=== PATIENT | female | born 1950 | race Caucasian/White ===

== ENCOUNTER 2025-05-23 06:17 | Day surgery (SDC) | payer MEDICARE ==
[2025-05-23 06:45] LABS: Hematocrit 36.3 % (34.1-44.9); Hemoglobin 11.5 g/dL (11.2-15.7); Mean Corpuscular Hemoglobin 29.2 pg (25.6-32.2); Mean Corpuscular Hgb Concent. 31.7 g/dL (32.2-35.5); Platelet Count 221 x10^3/uL (182-369); Red Blood Count 3.94 x10^6/uL (3.93-5.22); White Blood Count 6.0 x10^3/uL (3.98-10.04)
[2025-05-23 07:02] LABS: Calcium 9.0 mg/dL (8.4-10.2); Carbon Dioxide 27.0 mmol/L (22-30); Creatinine 1 0.69 mg/dL (0.52-1.04); EST GLOMERULAR FILTRATION RATE 91.0 ML/MIN; Glucose 95.0 mg/dL (74-106); Potassium 3.7 mmol/L (3.5-5.1); SGOT/AST 24.0 U/L (14-36); SGPT/ALT 13.0 U/L (0-35); Total Protein 6.9 g/dL (6.3-8.2)
[2025-05-23] MEDS ORDERED: TRANEXAMIC 1,000 MG/100ML-NACL 1,000 MG/100 ML PIGGYBACK IV ONE (07:24)
[2025-05-23] MEDS ORDERED: CEFAZOLIN SODIUM ONE (07:25)
[2025-05-23] MEDS ORDERED: Lactated Ringers 1,000 ML IV ONE (07:26)
[2025-05-23] MEDS: TRANEXAMIC 1,000 MG/100ML-NACL 1,000 MG/100 ML PIGGYBACK IV ONE (07:35)
[2025-05-23] MEDS: Lactated Ringers 1,000 ML IV SCH (07:38)
[2025-05-23] MEDS ORDERED: Zofran 4 MG/2 ML VIAL ONE (07:46)
[2025-05-23] MEDS ORDERED: propofoL IV ONE (07:46)
[2025-05-23] MEDS ORDERED: Xylocaine-Mpf 2% 5 Ml Vial ONE (07:46)
[2025-05-23] MEDS ORDERED: SUBLIMAZE 100 MCG/2 ML ONE (07:46)
[2025-05-23] MEDS ORDERED: Versed 2 MG/2 ML Injection ONE (07:46)
[2025-05-23] MEDS ORDERED: Marcaine Mpf 0.5% Vial 30 Ml ONE (07:47)
[2025-05-23] MEDS ORDERED: EXPAREL 133 MG/10 ML VIAL IJ ONE (07:47)
--- NOTE | 2025-05-23 08:35 | XRAY ---
Indication: Preop exam. Comparison: None Portable chest demonstrates cardiomegaly and mild right hemidiaphragm elevation. No focal infiltrate, consolidation, or large effusion. Bony thorax intact with osteopenia and minimal degenerative changes. Impression: Cardiomegaly. No acute cardiopulmonary abnormalities.
--- NOTE | 2025-05-23 10:54 | XRAY ---
Indication: Postop exam. Comparison: May 22, 2025 2 view left knee again demonstrates osteopenia with new intact total knee arthroplasty and postoperative soft tissue swelling/emphysema and effusion. No other bony, articular, or soft tissue abnormalities.
[2025-05-23] MEDS ORDERED: ULTRAM 50 MG PO PRN (11:23)
[2025-05-23] MEDS: NORCO 7.5/325 MG TAB PO PRN (11:53)
[2025-05-23] MEDS: DIOVAN 80 MG PO SCH ×2 (14:33→23:20)
[2025-05-23] MEDS: Toprol Xl 50 MG PO SCH ×2 (14:34→23:20)
[2025-05-23] MEDS: Hydromorphone 1 mg/ml Injection IV PRN (16:22)
[2025-05-23] MEDS: NORCO 10-325 MG PO PRN (17:31)
[2025-05-23] MEDS: XARELTO 10 MG TABLET PO SCH (21:51)
[2025-05-24 04:11] VITALS: TEMP 97.9
[2025-05-24 05:03] LABS: Hematocrit 33.4 % (34.1-44.9); Hemoglobin 10.5 g/dL (11.2-15.7); Mean Corpuscular Hemoglobin 29.2 pg (25.6-32.2); Mean Corpuscular Hgb Concent. 31.4 g/dL (32.2-35.5); Platelet Count 217 x10^3/uL (182-369); Red Blood Count 3.59 x10^6/uL (3.93-5.22); White Blood Count 9.4 x10^3/uL (3.98-10.04)
[2025-05-24 09:37] VITALS: BP 104/57; PULSE 90; RESP 16; O2SAT 97
--- NOTE | 2025-05-24 10:01 | OP ---
SURGERY DATE/TIME: 05/23/2025 [id number] PREOPERATIVE DIAGNOSIS: Severe advanced osteoarthritis, left knee. POSTOPERATIVE DIAGNOSIS: Severe advanced osteoarthritis, left knee. PROCEDURE: Left total knee replacement arthroplasty. SURGEON: Ag Robbins II, DO ANESTHESIA: Spinal with block for postoperative pain control. DESCRIPTION OF PROCEDURE AND FINDINGS: The patient was identified and informed consent was obtained. The patient was taken to the operative suite where the spinal anesthetic was administered. Following this, the block was administered once an appropriate level of anesthesia had been obtained. A tourniquet was placed high on the left thigh. The left lower extremity was then prepped and draped in the usual sterile fashion. A standard time-out was taken. The foot was then placed into the boot for the Fontanez knee alves. The leg was exsanguinated and tourniquet elevated to 350 mmHg. With the knee in a flexed position, the midline incision was accomplished. Skin was incised. Dissection was carried out through the subcutaneous tissue. Utilizing a fresh #10 knife blade, a standard medial parapatellar incision was accomplished. Upon entering the joint, a copious amount of grade 1 synovial fluid was encountered. Upon inspection of the joint, the patient had hard eburnated bone noted on the entire medial femoral condyle and tibial plateau. Significant areas of hard eburnated bone were noted at the lateral femoral condyle and tibial plateau as well as on both medial and lateral facets of the patella. At this point, a portion of the infrapatellar fat pad was excised for visualization. The patient was anterior cruciate deficient and the stump was excised. Portions of the medial and lateral menisci were excised for visualization. Z retractors were positioned and at this point, some of the larger osteophytes were removed for better visualization. At this point, the 10-inch intramedullary matthew was then inserted into the femur after drilling a mapping pilot hole. Utilizing a 6-degree valgus cut, the distal femoral cut was accomplished. Following this and appropriate sizing, the size 9 4-in-1 cutting block was applied. The anterior, posterior, and chamfer cuts were then made. At this point, after the wafers of bone had been removed, any remaining portions of menisci were now excised. Our attention was now turned to the tibial side where posterior retractor was positioned and the mapping pilot hole was created in the tibia. The 10-inch intramedullary matthew inserted utilizing the cutting block with the 3-degree posterior slip. The proximal wafer of tibia was resected removing 2 mm of tibia from the deficient side. At this point, once the wafer of bone had been removed, any remaining soft tissue debris was excised. The 3/4-inch curved osteotome was utilized to remove the osteophytes from the posterior femoral condyles. Rongeur was utilized to remove any further osteophytes. Trial reduction with the E sized tibial component showed to be the appropriate size. It was held in appropriate rotation with pins. At this point, the trial femur was applied and impacted into position. It was deemed that a 16 mm poly would be the appropriate size to give good soft tissue balance in full extension as well as throughout the entire arc of motion to flexure greater than 125 degrees. At this point, drill holes were created in the femur for the pegs on the femoral component. The patellar button was them measured and it was deemed that a 25 patella would be the appropriate size. Osteophytes had been excised with the rongeur. Milling of the patella was accomplished, restoring the pre-resection height. Excellent tracking was noted. At this point, the trial patella was removed as was the trial femur and tibial poly. The cruciate stem was cut in the tibia and then all trial instrumentation was removed. The joint was copiously irrigated with a pulsed blender machine operator and dried while the cement was being vacuum mixed. Cement was then pressed into the interstices of the tibia and the tibial component was then impacted and cemented into position. Excess cement was removed during the curing process. The femoral component was press fit into position and the 16 trial poly was then reinserted. The knee was held in extension during the curing process. At this point, the patellar button was cemented into position and held with its clamp. Once the cement had fully cured and all excess cement had been removed, trial reduction showed that the 16 poly gave excellent soft tissue balance in full extension and flexion cleared greater than 125 degrees without evidence of tibial liftoff. At this point, the trial tibial tray was removed. The joint was irrigated with the pulsed blender machine operator. The permanent component was then inserted and snapped into position. Again, trial range of motion showed to be excellent stability. The wound was then irrigated one more time and closed with #2 Stratafix, 2-0 Monocryl for subcutaneous tissue, and 3-0 Stratafix subcuticular for skin. Dermabond was then applied. Once the Dermabond had dried, an Aquacel dressing was applied. The patient was then transferred to the cart and taken to the recovery room in satisfactory condition, having tolerated the procedure well.
== END 2025-05-24 10:41 | disposition home or self-care (01) ==
LOC: EDBD → SDC 06:17 → MED SURG 10:55 → SDC 05-24 10:41
PROVIDERS: ATTEND Orthopaedic Surgery
DX: M17.12 Unilateral primary osteoarthritis, left knee (principal)